=== PATIENT | male | born 1960 | race Caucasian/White ===

== ENCOUNTER 2020-08-13 06:23 | Outpatient (REF) | payer OTHER, SELFPAY ==
[2020-08-13 11:13] LABS: MANUAL DIFF FLAG NO
[2020-08-13 11:24] LABS: Basophils Percent Auto 0.9 % (0-2); Eosinophils Absolute Auto 0.2 X10*3/uL (0.0-0.4); Eosinophils Percent Auto 5.2 % (0-4); Hematocrit 45.6 % (42-52); Hemoglobin 14.7 g/dl (14.0-18.0); Imm Gran Abs Auto 0.01 X10*3/uL (0.00-0.03); Imm Gran Pct Auto 0.2 % (0.0-0.4); Lymphocytes Absolute Auto 1.4 X10*3/uL (1.2-4.9); Lymphocytes Percent Auto 29.4 % (20-40); Mean Corpuscular HGB Conc 32.2 g/dl (31.0-36.0); Mean Corpuscular Hemoglobin 29.2 pg (27.0-33.0); Mean Corpuscular Volume 90.5 fL (80-98); Mean Platelet Volume 9.8 fL (9.4-12.4); Monocytes Absolute Auto 0.3 X10*3/uL (0.1-1.2); Monocytes Percent Auto 6.9 % (2-11); Neutrophils Absolute Auto 2.7 X10*3/uL (2.0-8.3); Neutrophils Percent Auto 57.4 % (45-73); Platelet Count 220 X10*3/uL (160-400); Red Blood Count 5.04 X10*6/uL (4.60-5.80); Red Cell Distribution Width 12.3 % (11.0-16.0); White Blood Count 4.7 X10*3/uL (4.8-10.8)
[2020-08-13 11:37] LABS: Anion Gap 12 (12-20); Blood Urea Nitrogen 12 mg/dL (9-16); Calcium 8.7 mg/dL (8.4-10.2); Carbon Dioxide 29 mmol/L (22-29); Chloride 106 mmol/L (96-108); Cholesterol 214 mg/dL; Estimated Glomerular Filt Rate > 60; Glucose Fasting 88 mg/dL (60-99); HDL Cholesterol 42 mg/dL; LDL Cholesterol Calculated 136 mg/dl; Potassium 4.2 mmol/l (3.3-5.1); Sodium 143 mmol/L (135-145); Triglycerides 180 mg/dL
[2020-08-13 12:00] LABS: Vitamin B12 447 pg/mL (200-900)
[2020-08-17 20:28] LABS: Vitamin D 25-OH, D2 <4 ng/mL; Vitamin D 25-OH, D3 14 ng/mL; Vitamin D 25-OH, Total 14 ng/mL (30-100)
== END 2020-08-13 06:24 | disposition home or self-care (01) ==
LOC: HO.HMGCLDS 06:23
PROVIDERS: PCP Internal Medicine; Visit Provider Internal Medicine
DX: M19.90 Unspecified osteoarthritis, unspecified site (principal); I10 Essential (primary) hypertension; R20.2 Paresthesia of skin; Z76.89 Persons encountering health services in other specified circumstances
CPT/HCPCS: 36415; 80048; 80061; 82306; 82607; 85025

== ENCOUNTER 2021-10-21 13:06 | Outpatient (REF) | payer OTHER, SELFPAY ==
--- NOTE | ~2021-10-21 | US_ITS ---
EXAMINATION: US PENILE CLINICAL INFORMATION: Cyst of the penis. Erectile dysfunction. COMPARISON: None TECHNIQUE: Penile ultrasound was performed with a Doppler imaging as well. FINDINGS: Along the dorsal aspect of proximal penis/soft tissue, there is an echogenic calcification measuring 0.3 x 0.2 x 0.4 cm. There is normal symmetry of corpus cavernosa and normal-appearing corpus spongiosum. There is normal vascular flow seen within the dorsalis penile artery with no echogenic calcification seen. Normal flow seen within the penile vein as well. US/US penile IMPRESSION: Soft tissue calcification along the base of dorsal penis. Normal arterial and venous flow with no arterial echogenic calcification. No abnormality seen on the dorsal phallus where patient indicated swelling or pain.
== END 2021-10-21 13:07 | disposition home or self-care (01) ==
LOC: HO.US 13:06
PROVIDERS: PCP Physician Assistant; Visit Provider Physician Assistant
DX: N48.89 Other specified disorders of penis (principal)
CPT/HCPCS: 76857